=== PATIENT | male | born 1995 | race African-American/Black ===

== ENCOUNTER 2023-07-27 14:51 | Outpatient (AMB) | payer OTHER, SELFPAY ==
--- NOTE | 2023-07-27 14:53 | A.OFFPC_ITS ---
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 No recent PCP Last office visit/CPE: Years Acute issue(s): Hemorrhoids Nasal discharge PMHx: Kidney Stone, Hemorrhoids, Childhood Heart Murmur SurgHx: Kidney Stone ablation FHx: Dad: Diabetes. Mom: Healthy SocHx: Quit 3 years ago. EtOH quit 6 yrs ago. MJ daily. PFSH Medical History (Updated 07/27/23 @ 15:20 by Jona King) H/O nephrolithotomy with removal of calculi Acute hemorrhoid Surgical History (Updated 07/27/23 @ 15:04 by Sammie Andrew [facility]) No pertinent past surgical history Family History (Updated 07/27/23 @ 15:06 by Sammie Andrew CMA) Father Diabetes Maternal Grandmother Breast cancer Paternal Grandmother Heart problem Social History Household Members: Family Housing: House Alcohol intake: never Patient Tobacco Use Status: Former Tobacco user e-Cigarette/Vaping Use: Never Used Substance Use Type: Marijuana service: No Current occupational status: employed Current occupation: [employer] worker Cognitive needs: No Hearing needs: No Vision needs: No Questionnaire PHQ-9 Over the last 2 weeks, how often have you been bothered by any of the following problems? 1. Little interest or pleasure in doing things: not at all 2. Feeling down, depressed, or hopeless: not at all 3. Trouble falling or staying asleep, or sleeping too much: not at all 4. Feeling tired or having little energy: not at all 5. Poor appetite or overeating: not at all 6. Feeling bad about yourself - or that you are a failure or have let yourself or your family down: not at all 7. Trouble concentrating on things, such as reading the newspaper or watching television: not at all 8. Moving or speaking so slowly that other people could have noticed. Or the opposite - being so fidgety or restless that you have been moving around a lot more than usual: not at all 9. Thoughts that you would be better off or of hurting yourself in some way: not at all Total score: 0 Source: Developed by Drs. Mikel Hallman, Jennie Dejesus, Adeel De and colleagues, with an educational eleazar from [employer]. Thrive Questionnaire I am a: Patient What is your living situation today?: I have a steady place to live Within the past 12 months, did the food you bought not last and you didn't have the money to get more?: Never true Within the past 12 months, did you worry whether your food would run out before you got money to buy more?: Never true Do you have trouble paying for medicines?: No Do you have trouble getting transportation to medical appointments?: No Do you have trouble paying your heating and electricity bill?: No Do you have trouble taking care of your child, family member or friend?: No Do you have trouble with day-to-day activities such as bathing, preparing meals, shopping, managing finances, etc.?: No Are you currently unemployed and looking for a job?: No Are you interested in more education?: No AUDIT C Alcohol Use Questionnaire (AUDIT-C) 1. How often do you have a drink containing alcohol?: Never 3. How often do you have six or more drinks on one occasion?: Never Total Score: 0 POLLY-7 AMB Questionnaire POLLY-7 Feeling nervous, anxious, or on edge: 0 = Not at all Not being able to stop or control worryin = Not at all Worrying too much about different things: 0 = Not at all Trouble relaxin = Not at all Being so restless that it is hard to sit still: 0 = Not at all Becoming easily annoyed or irritable: 0 = Not at all Feeling afraid as if something awful might happen: 0 = Not at all Total POLLY-7 score (0-4 normal; 5-9 mild; 10-14 moderate; 15-21 severe): 0 Source: Developed by Drs. Mikel Hallman, Jennie Dejesus, Adeel De and colleagues, with an educational eleazar from [employer]. Review of Systems Const Denies chills, Denies fatigue, Denies fever(s), Denies headache(s) and Denies weakness ENT Denies dizziness, Denies headache(s) and Reports nasal congestion Card Denies chest pain, Denies lightheadedness, Denies dyspnea and Denies other (Palpitations) Resp Denies cough, Denies dyspnea, Denies wheezing and Denies other ( shortness of breath) Musc Denies numbness and Denies tingling Neuro Denies dizziness, Denies headache(s), Denies numbness, Denies tingling, Denies paresthesias and Denies weakness Psych Denies anxiety and Denies depression Endo Denies fatigue Aller/Immun Denies wheezing Physical exam (Primary Care) Vital Signs: Last Vital Signs Pulse 94 07/27/23 14:54 BP 126/76 07/27/23 14:54 Pulse Ox 97 07/27/23 14:54 Oxygen Delivery Method Room Air 07/27/23 14:54 BMI result Body Mass Index 36.9 Tobacco/Smoking Status: Tobacco use Status Tobacco use date assessed 07/27/23 07/27/23 15:01 Patient Tobacco Use Status Former Tobacco user 07/27/23 15:11 e-Cigarette/Vaping Use Never Used 07/27/23 15:11 PHQ-9: PHQ-9 Score PHQ-9: Total score 0 07/27/23 15:15 Const General: no acute distress and well developed Nutritional Appearance: well nourished Orientation/consciousness: patient oriented x3 HENMT Head: Yes normocephalic and Yes atraumatic Eyes General: appearance normal, both eyes and all related structures Pupils: Equal, round and reactive pupils present EOM: EOMs intact bilaterally Resp Effort & Inspection: normal respiratory effort Auscultation: clear to auscultation bilaterally Cardio Rate: regular rate Rhythm: regular rhythm Heart sounds: S1 normal heart sound present, S2 normal heart sound present, no gallops, no murmurs and no rubs Neuro General: patient oriented x3 and gait normal Cranial nerves: Yes Equal, round and reactive pupils present Psych Affect: normal affect Assessment and Plan Assessment & Plan (1) Hemorrhoids: Code(s): K64.9 - Unspecified hemorrhoids Plan: Keep stools soft to avoid straining and also irritating hemorrhoids. Increase hydration and keep this regular Soluble fiber Prune juice Can use preparation H or tucks pads when inflamed If still not improving we can discuss using a laxative at his next visit. (2) Perforated nasal septum: Code(s): J34.89 - Other specified disorders of nose and nasal sinuses Plan: Perforated nasal septum with adjacent erosions. Unclear cause but patient does note that he has used nasal decongestant sprays in the past. Advised him to discontinue their use. He can use nasal saline Erosion appears mildly infected. This may be the cause of increased nasal discharge. See below. Referred to ENT. (3) Nasal discharge: Code(s): J34.89 - Other specified disorders of nose and nasal sinuses Plan: Patient notes increased nasal discharge. Possibly is secondary to nasal infection or irritation of nasal septum perforation. Or patient may have been using nasal decongestants chronically and has rebound congestion. Do not use any nasal decongestants. Can use nasal saline. Avoid instrumentation. Will give him an antibiotic for possible nasal mucosal infection Follow-up with ENT as above (4) Laboratory exam ordered as part of routine general medical examination: Code(s): Z00.00 - Encounter for general adult medical examination without abnormal findings Plan: Check labs Orders: Orders Lipid Panel Today Z00.00 - Encounter for general adult medical examination without abnormal findings TSH reflex Free T4 Today Z00.00 - Encounter for general adult medical examination without abnormal findings UA and rflx microscopic Today Z00.00 - Encounter for general adult medical examination without abnormal findings Hepatitis B,C Profile Today Z11.3 - Encounter for screening for infections with a predominantly sexual mode of transmission Comprehensive [place]. Panel Fast Today Z00.00 - Encounter for general adult medical examination without abnormal findings Microalbumin, Random (w Creat) Today I10 - Essential (primary) hypertension Syphilis Screen Today Z11.3 - Encounter for screening for infections with a predominantly sexual mode of transmission HIV Ab/Ag Today Z11.3 - Encounter for screening for infections with a predominantly sexual mode of transmission CT NG by PCR Today Z11.3 - Encounter for screening for infections with a predominantly sexual mode of transmission Referrals Ear/Nose/Throat Referral J34.89 - Other specified disorders of nose and nasal sinuses Medications: New amoxicillin 500 mg PO Q12H 20 tabs 0RF 10 days calcium polycarbophil (FiberCon) 625 mg PO DAILY 30 tabs 2RF 30 days Coding Level of Care Code New Pt Level 3 (08142) Diagnoses Hemorrhoids K64.9 Perforated nasal septum J34.89 Nasal discharge J34.89 Laboratory exam ordered as part of routine general medical examination Z00.00
[2023-07-27 14:54] VITALS: BP 126/76; PULSE 94; O2SAT 97; BMI 36.9
== END 2023-07-27 15:48 | disposition home or self-care (01) ==
PROVIDERS: PCP Family Medicine; Visit Provider Family Medicine
DX: K64.9 Unspecified hemorrhoids (principal); J34.89 Other specified disorders of nose and nasal sinuses; Z00.00 Encounter for general adult medical examination without abnormal findings
CPT/HCPCS: 99203

== ENCOUNTER 2023-09-06 09:06 | Outpatient (REF) | payer OTHER, SELFPAY ==
[2023-09-06 11:40] LABS: Appearance Urine Clear; Color Urine Yellow; Glucose Urine UA Negative (Negative); Leukocyte Esterase Urine Negative (Negative); Nitrite Urine Negative (Negative); Urine Blood Negative (Negative); Urine Ketones Negative (Negative); Urine Protein Negative (Neg-Trace)
[2023-09-06 12:18] LABS: Alanine Aminotransferase 27 U/L (0-40); Albumin Level 4.2 g/dL (3.5-5.0); Alkaline Phosphatase 55 U/L (39-117); Anion Gap 12 (12-20); Aspartate Amino Transferase 17 U/L (5-37); Bilirubin Total 0.2 mg/dL (0.0-1.0); Blood Urea Nitrogen 12 mg/dL (9-16); Carbon Dioxide 24 mmol/L (22-29); Chloride 104 mmol/L (96-108); Cholesterol 142 mg/dL (<200); Estimated Glomerular Filt Rate > 60; Glucose Fasting 94 mg/dL (60-99); HDL Cholesterol 37 mg/dL (>40); LDL Cholesterol Calculated 84 mg/dL (<100); Potassium 4.2 mmol/L (3.3-5.1); Sodium 136 mmol/L (135-145); Syphilis Screen Nonreactive (Nonreactive); TSH reflex Free T4 1.54 uIU/mL (0.32-4.0); Total Protein 7.8 g/dL (6.5-8.0); Triglycerides 108 mg/dL (<150)
[2023-09-06 12:20] LABS: Creatinine Urine 98.65 mg/dL; Microalbumin Urine < 5.0 mg/L
[2023-09-06 12:25] LABS: HBsAGNum1 0.38 S/CO (0.00-0.99); HIV AB/AG Nonreactive (Nonreactive); HIV Num 1 0.05 S/CO (0.00-0.99); Hepatitis B Core Antibody Nonreactive (Nonreactive); Hepatitis B Surface Antigen Negative (Negative); ~HepC Num1 0.05 S/CO (0.00-0.79); ~Hepatitis B Surface Antibody NONREACTIVE (Nonreactive); ~Hepatitis C Antibody Nonreactive (Nonreactive)
== END 2023-09-06 09:07 | disposition home or self-care (01) ==
LOC: HO.WFDLDS 09:06
PROVIDERS: Visit Provider Family Medicine
DX: Z00.00 Encounter for general adult medical examination without abnormal findings (principal); Z11.3 Encounter for screening for infections with a predominantly sexual mode of transmission; I10 Essential (primary) hypertension
CPT/HCPCS: 36415; 80053; 80061; 81003; 82043; 82570; 84443; 86704; 86706; 86780; 86803; 87340; 87389